=== PATIENT | male | born 1940 | race Caucasian/White ===

== ENCOUNTER → 2025-08-07 08:46 | Outpatient (REF) | payer MEDICARE, BC, SELFPAY | LOC: RCS 08:46 | PROVIDERS: ATTENDING PHYSICIAN Internal Medicine Cardiovascular Disease; FAMILY PHYSICIAN Family Medicine | DX: I25.10 Atherosclerotic heart disease of native coronary artery without angina pectoris (principal) | CPT/HCPCS: 93306 ==